=== PATIENT | male | born 1940 | race Caucasian/White ===

== ENCOUNTER 2017-06-05 22:36 | Emergency (ER) | payer MEDICARE, BC ==
--- NOTE | 2017-06-06 09:34 | CT ---
PRELIMINARY REPORT/[facility]/EMERGENCY AFTER HOURS PROCEDURE: EXAM: CT Head Without Intravenous Contrast CLINICAL HISTORY: 76 years old, male; Pain; Headache; Headache not specified; Patient HX: HUDSON off and on x 2 months, wor se today without relief TECHNIQUE: Axial computed tomography images of the head/brain without intravenous contrast. COMPARISON: No relevant prior studies available. FINDINGS: Brain: Mild volume loss No hemorrhage. No significant white matter disease. No edema. Ventricles: Unremarkable. No ventriculomegaly. Bones/joints: Unremarkable. No acute fracture. Soft tissues: Unremarkable. Sinuses: Minimal polypoid tissue in the right frontal sinus and right ethmoid air cells No acute sinu sitis. Mastoid air cells: Unremarkable as visualized. No mastoid effusion. IMPRESSION: No intracranial hemorrhage.Please see discussion above. Thank you for allowing us to participate in the care of your patient. Dictated and Authenticated by: Kwame Porter MD 06/05/2017 11:23 PM Central Time ([place] & [place]) FINAL REPORT CT OF THE BRAIN WITHOUT CONTRAST: Date: 06/05/17 The ventricles are normal in size for age and show no shift. No intracranial bleeding or extra-axial hematoma seen. There is no sign of mass, edema, or stroke. The calvarium appears intact. There are a few areas of mucosal thickening throughout the ethmoid and frontal sinuses. IMPRESSION: No acute intracranial findings. Report in agreement with preliminary reading by Sweetie. POS: HOME
== END 2017-06-06 00:12 | disposition home or self-care (01) ==
LOC: BURERS 22:36
DX: I10 Essential (primary) hypertension (principal); R51 Headache; Z79.82 Long term (current) use of aspirin; Z79.899 Other long term (current) drug therapy
CPT/HCPCS: 70450